=== PATIENT | male | born 1940 | race Asian ===

== ENCOUNTER 2017-10-23 12:09 | Inpatient (IN) | payer OTHER ==
[2017-10-23] MEDS: hydrALAzine 20 MG INJ IV (22:52)
[2017-10-23 23:11] LABS: ADD MAN DIFF? NO
[2017-10-23 23:14] LABS: BASOPHIL # 0.1 10^3/ul (0.0-0.1); BASOPHILS % 0.7 % (0.0-2.0); EOSINOPHILS # 0.5 10^3/ul (0.0-0.5); HEMATOCRIT 34.9 % (42.0-52.0); HEMOGLOBIN 12.3 g/dl (14.0-18.0); LYMPHOCYTES # 1.7 10^3/ul (0.8-2.9); LYMPHOCYTES % 17.2 % (15.0-51.0); MEAN CORPUSCULAR HEMOGLOBIN 31.4 pg (29.0-33.0); MEAN CORPUSCULAR HGB CONC 35.2 g/dl (32.0-37.0); MEAN PLATELET VOLUME 10.7 fl (7.4-10.4); MONOCYTE # 0.8 10^3/ul (0.3-0.9); MONOCYTES % 7.8 % (0.0-11.0); NEUTROPHIL # 6.6 10^3/ul (1.6-7.5); PLATELET COUNT 174 10^3/UL (140-415); RED BLOOD COUNT 3.92 10^6/ul (4.70-6.10); RED CELL DISTRIBUTION WIDTH 12.4 % (11.5-14.5)
[2017-10-23 23:14] LABS: WHITE BLOOD COUNT 9.6 10^3/ul (4.8-10.8)
[2017-10-23] MEDS ORDERED: ONDANSETRON 4 MG INJ (23:42)
[2017-10-23] MEDS ORDERED: morphine 4 MG/ML VIAL (23:42)
[2017-10-23] MEDS: morphine 4 MG/ML VIAL IV (23:57)
[2017-10-23] MEDS: ONDANSETRON 4 MG INJ IV (23:59)
[2017-10-24 00:16] LABS: B-TYPE NATRIURETIC PEPTIDE 1770 PG/ML (0-450); TROPONIN-I 0.027 ng/ml (0.00-0.12)
[2017-10-24 00:35] LABS: ALANINE AMINOTRANSFERASE 31 IU/L (13-69); ALBUMIN 3.8 g/dl (3.3-4.9); ALBUMIN/GLOBULIN RATIO 1.11; ALKALINE PHOSPHATASE 60 IU/L (42-121); ANION GAP 14 (8-16); ASPARTATE AMINO TRANSFERASE 23 IU/L (15-46); BLOOD UREA NITROGEN 26 mg/dl (7-20); CALCIUM 9.2 mg/dl (8.4-10.2); CARBON DIOXIDE 28 mmol/L (21-31); CHLORIDE 105 mmol/L (97-110); GLUCOSE 95 mg/dl (70-220); POTASSIUM 3.4 mmol/L (3.5-5.1); SODIUM 144 mmol/L (135-144); TOTAL PROTEIN 7.2 g/dl (6.1-8.1)
[2017-10-24] MEDS ORDERED: NACL 0.9% 3 ML SYG IV (05:00)
[2017-10-24] MEDS ORDERED: GLUCOSE GEL 15 GRAM TUBE BUCCAL (05:00)
[2017-10-24] MEDS ORDERED: ALBUTEROL/IPRATROPIUM (NEB) 3 ML AMP HHN (05:00)
[2017-10-24] MEDS ORDERED: GLUCOSE GEL 15 GRAM TUBE PO ×2 (05:00)
[2017-10-24] MEDS ORDERED: GLUCAGON 1 MG INJ IM (05:00)
[2017-10-24] MEDS ORDERED: DIPHENHYDRAMINE 25 MG CAP PO (05:00)
[2017-10-24] MEDS ORDERED: ACETAMINOPHEN 325 MG TAB PO (05:00)
[2017-10-24] MEDS ORDERED: DEXTROSE 50% 50 ML SYRINGE IV (05:00)
[2017-10-24] MEDS ORDERED: NITROGLYCERIN (SL) 0.4 MG TAB SL (05:00)
[2017-10-24] MEDS ORDERED: ONDANSETRON 4 MG INJ IV (05:00)
[2017-10-24] MEDS: NIFEdipine 10 MG CAP PO ×3 (05:59→22:19)
[2017-10-24] MEDS: traMADol 50 MG TAB PO ×3 (05:59→22:23)
[2017-10-24 06:54] LABS: ADD MAN DIFF? NO
[2017-10-24 06:56] LABS: BASOPHIL # 0.1 10^3/ul (0.0-0.1); BASOPHILS % 0.8 % (0.0-2.0); EOSINOPHILS # 0.4 10^3/ul (0.0-0.5); EOSINOPHILS % 4.6 % (0.0-7.0); HEMATOCRIT 34.5 % (42.0-52.0); HEMOGLOBIN 12.1 g/dl (14.0-18.0); LYMPHOCYTES # 1.6 10^3/ul (0.8-2.9); LYMPHOCYTES % 17.1 % (15.0-51.0); MEAN CORPUSCULAR HEMOGLOBIN 31.4 pg (29.0-33.0); MEAN CORPUSCULAR HGB CONC 35.1 g/dl (32.0-37.0); MEAN CORPUSCULAR VOLUME 89.6 fl (82.0-101.0); MEAN PLATELET VOLUME 10.5 fl (7.4-10.4); MONOCYTE # 0.8 10^3/ul (0.3-0.9); MONOCYTES % 8.2 % (0.0-11.0); NEUTROPHIL # 6.4 10^3/ul (1.6-7.5); PLATELET COUNT 161 10^3/UL (140-415); RED BLOOD COUNT 3.85 10^6/ul (4.70-6.10); RED CELL DISTRIBUTION WIDTH 12.4 % (11.5-14.5)
[2017-10-24 06:56] LABS: WHITE BLOOD COUNT 9.3 10^3/ul (4.8-10.8)
[2017-10-24 07:22] LABS: CREATINE KINASE 565 IU/L (23-200)
[2017-10-24] MEDS: INSULIN ASPART [NOVOLOG] 3 ML PEN SC ×4 (07:22→20:59)
[2017-10-24 07:30] LABS: ALANINE AMINOTRANSFERASE 31 IU/L (13-69); ALBUMIN 3.4 g/dl (3.3-4.9); ALBUMIN/GLOBULIN RATIO 1.21; ALKALINE PHOSPHATASE 52 IU/L (42-121); ANION GAP 15 (8-16); ASPARTATE AMINO TRANSFERASE 68 IU/L (15-46); BILIRUBIN,INDIRECT 0.3 mg/dl (0-1.1); BILIRUBIN,TOTAL 0.3 mg/dl (0.2-1.3); BLOOD UREA NITROGEN 25 mg/dl (7-20); CALCIUM 8.5 mg/dl (8.4-10.2); CARBON DIOXIDE 26 mmol/L (21-31); CHLORIDE 106 mmol/L (97-110); CHOL/HDL RATIO 3.3 RATIO; CHOLESTEROL 128 mg/dl (100-200); CREATININE 1.85 mg/dl (0.61-1.24); GLUCOSE 112 mg/dl (70-220); HDL CHOLESTEROL 38 mg/dl (31-75); LDL CHOLESTEROL,CALCULATED 75 mg/dl; POTASSIUM 3.6 mmol/L (3.5-5.1); SODIUM 143 mmol/L (135-144); TOTAL PROTEIN 6.2 g/dl (6.1-8.1); TRIGLYCERIDES 74 mg/dl (0-149)
[2017-10-24 07:34] LABS: CK INDEX 7.8
[2017-10-24] MEDS: DOCUSATE SODIUM 100 MG CAP PO ×2 (07:55→20:59)
[2017-10-24] MEDS: LOSARTAN 50 MG TAB PO (07:56)
[2017-10-24] MEDS: HYDROCHLOROTHIAZIDE 25 MG TAB PO (07:57)
[2017-10-24] MEDS: ENOXAPARIN 60 MG/0.6 ML SYG SC ×2 (08:19→20:50)
[2017-10-24] MEDS: ASPIRIN (EC) 81 MG TAB PO (08:20)
[2017-10-24] MEDS: ATORVASTATIN 40 MG TAB PO (08:20)
[2017-10-24] MEDS ORDERED: HEPARIN 5,000 UNIT/0.5 ML VIAL SC (09:00)
[2017-10-24 13:13] LABS: CREATINE KINASE 829 IU/L (23-200)
[2017-10-24 13:25] LABS: CK INDEX 7.8
[2017-10-24 15:19] LABS: THYROID STIMULATING HORMONE 0.917 MIU/L (0.465-4.680)
[2017-10-24] MEDS: DOXAZOSIN 4 MG TAB PO (20:59)
[2017-10-24] MEDS: DIAZEPAM 5 MG TAB PO (21:30)
[2017-10-24] MEDS: DIPHENHYDRAMINE 50 MG CAP PO (21:30)
[2017-10-24] MEDS: SOD CHLORIDE 0.45% 1,000 ML IV (22:18)
[2017-10-24] MEDS: INSULIN GLARGINE [LANtus] 3 ML PEN SC (22:21)
[2017-10-25] MEDS: ACCU-CHEK XX (02:55)
[2017-10-25] MEDS ORDERED: DIPHENHYDRAMINE 50 MG CAP PO (06:00)
[2017-10-25] MEDS ORDERED: DIAZEPAM 5 MG TAB PO (06:00)
[2017-10-25] MEDS: NIFEdipine 10 MG CAP PO ×3 (06:55→21:06)
[2017-10-25] MEDS: traMADol 50 MG TAB PO ×4 (06:56→08:42)
[2017-10-25 07:41] LABS: ADD MAN DIFF? NO
[2017-10-25 07:46] LABS: BASOPHIL # 0.1 10^3/ul (0.0-0.1); BASOPHILS % 0.9 % (0.0-2.0); EOSINOPHILS # 0.6 10^3/ul (0.0-0.5); EOSINOPHILS % 5.9 % (0.0-7.0); HEMATOCRIT 35.3 % (42.0-52.0); HEMOGLOBIN 12.1 g/dl (14.0-18.0); LYMPHOCYTES % 18.9 % (15.0-51.0); MEAN CORPUSCULAR HEMOGLOBIN 31.2 pg (29.0-33.0); MEAN CORPUSCULAR HGB CONC 34.3 g/dl (32.0-37.0); MONOCYTE # 0.9 10^3/ul (0.3-0.9); MONOCYTES % 8.4 % (0.0-11.0); NEUTROPHIL # 6.8 10^3/ul (1.6-7.5); NEUTROPHILS % 65.6 % (39.0-77.0); PLATELET COUNT 163 10^3/UL (140-415); RED BLOOD COUNT 3.88 10^6/ul (4.70-6.10); RED CELL DISTRIBUTION WIDTH 12.4 % (11.5-14.5)
[2017-10-25 07:46] LABS: WHITE BLOOD COUNT 10.4 10^3/ul (4.8-10.8)
[2017-10-25] MEDS: INSULIN ASPART [NOVOLOG] 3 ML PEN SC ×4 (08:00→21:00)
[2017-10-25 08:06] LABS: INR 1.04; PROTIME 13.7 Sec (11.9-14.9); PT RATIO 1.1
[2017-10-25 08:07] LABS: PARTIAL THROMBOPLASTIN TIME 36.5 Sec (25.0-35.0)
[2017-10-25 08:09] LABS: CREATINE KINASE 497 IU/L (23-200); TRIGLYCERIDES 106 mg/dl (0-149)
[2017-10-25 08:09] LABS: CHOLESTEROL 115 mg/dl (100-200)
[2017-10-25] MEDS ORDERED: NITROGLYCERIN (IC) 100 MCG/ML INJ (08:16)
[2017-10-25] MEDS ORDERED: VERAPAMIL 5 MG INJ (08:16)
[2017-10-25] MEDS ORDERED: IODIXANOL LOCM 100 ML BTL (08:16)
[2017-10-25] MEDS ORDERED: FENTAnyl 50 MCG/ML VIAL (08:16)
[2017-10-25] MEDS ORDERED: HEPARIN 1000 UNITS/ML 10 ML INJ ×2 (08:16)
[2017-10-25] MEDS ORDERED: LIDOCAINE 1% (MDV) 20 ML INJ (08:16)
[2017-10-25] MEDS ORDERED: MIDAZOLAM 1 MG/ML 2 ML INJ (08:16)
[2017-10-25 08:21] LABS: CK INDEX 3.5
[2017-10-25 08:27] LABS: ANION GAP 12 (8-16); BLOOD UREA NITROGEN 29 mg/dl (7-20); CALCIUM 8.7 mg/dl (8.4-10.2); CARBON DIOXIDE 29 mmol/L (21-31); CHLORIDE 103 mmol/L (97-110); CREATININE 1.91 mg/dl (0.61-1.24); GLUCOSE 69 mg/dl (70-220); PHOSPHORUS 3.5 mg/dl (2.5-4.9); POTASSIUM 3.4 mmol/L (3.5-5.1); SODIUM 141 mmol/L (135-144)
[2017-10-25] MEDS: ASPIRIN (EC) 81 MG TAB PO (08:40)
[2017-10-25] MEDS: DOCUSATE SODIUM 100 MG CAP PO ×2 (08:40→21:06)
[2017-10-25] MEDS: ISOSORBIDE DINITRATE 10 MG TAB PO ×3 (08:41→21:06)
[2017-10-25] MEDS: ATORVASTATIN 80 MG TAB PO (08:41)
[2017-10-25] MEDS: SOD CHLORIDE 0.45% 1,000 ML IV (10:45)
[2017-10-25] MEDS: SOD CHLORIDE 0.9% 1,000 ML IV ×2 (10:55→12:48)
[2017-10-25] MEDS ORDERED: ONDANSETRON 4 MG INJ IV (11:00)
[2017-10-25] MEDS ORDERED: AL HYDROX/MG HYDROX/SIMETH 30 ML CUP PO (11:00)
[2017-10-25] MEDS ORDERED: HEPARIN 1000 UNITS/ML 10 ML INJ IV (19:00)
[2017-10-25 20:04] LABS: ADD MAN DIFF? NO
[2017-10-25 20:08] LABS: WHITE BLOOD COUNT 7.5 10^3/ul (4.8-10.8)
[2017-10-25 20:08] LABS: BASOPHIL # 0.1 10^3/ul (0.0-0.1); BASOPHILS % 1.1 % (0.0-2.0); EOSINOPHILS # 0.3 10^3/ul (0.0-0.5); EOSINOPHILS % 4.6 % (0.0-7.0); HEMATOCRIT 35.8 % (42.0-52.0); HEMOGLOBIN 12.4 g/dl (14.0-18.0); LYMPHOCYTES # 1.5 10^3/ul (0.8-2.9); LYMPHOCYTES % 19.4 % (15.0-51.0); MEAN CORPUSCULAR HEMOGLOBIN 31.2 pg (29.0-33.0); MEAN CORPUSCULAR HGB CONC 34.6 g/dl (32.0-37.0); MEAN CORPUSCULAR VOLUME 90.2 fl (82.0-101.0); MEAN PLATELET VOLUME 10.9 fl (7.4-10.4); MONOCYTE # 0.8 10^3/ul (0.3-0.9); MONOCYTES % 10.3 % (0.0-11.0); NEUTROPHIL # 4.8 10^3/ul (1.6-7.5); NEUTROPHILS % 64.3 % (39.0-77.0); PLATELET COUNT 165 10^3/UL (140-415); RED BLOOD COUNT 3.97 10^6/ul (4.70-6.10); RED CELL DISTRIBUTION WIDTH 12.3 % (11.5-14.5)
[2017-10-25 20:25] LABS: INR 0.97
[2017-10-25 20:26] LABS: PARTIAL THROMBOPLASTIN TIME 30.4 Sec (25.0-35.0)
[2017-10-25] MEDS ORDERED: ENOXAPARIN 60 MG/0.6 ML SYG SC (21:00)
[2017-10-25] MEDS: DOXAZOSIN 4 MG TAB PO (21:07)
[2017-10-25] MEDS: ACETYLCYSTEINE 600 MG CAP PO (21:07)
[2017-10-25] MEDS: HEPARIN 1000 UNITS/ML 10 ML INJ IV (21:09)
[2017-10-25] MEDS: HEPARIN 25000 UNITS/250 ML 250 ML IV (21:12)
[2017-10-25] MEDS: INSULIN GLARGINE [LANtus] 3 ML PEN SC (22:28)
[2017-10-26] MEDS: SOD CHLORIDE 0.45% 1,000 ML IV ×3 (02:02→17:14)
[2017-10-26] MEDS: ACCU-CHEK XX (02:03)
[2017-10-26 03:59] LABS: ADD MAN DIFF? NO
[2017-10-26 04:11] LABS: WHITE BLOOD COUNT 10.5 10^3/ul (4.8-10.8)
[2017-10-26 04:11] LABS: BASOPHIL # 0.1 10^3/ul (0.0-0.1); BASOPHILS % 0.6 % (0.0-2.0); EOSINOPHILS # 0.5 10^3/ul (0.0-0.5); EOSINOPHILS % 4.9 % (0.0-7.0); HEMATOCRIT 33.3 % (42.0-52.0); HEMOGLOBIN 11.3 g/dl (14.0-18.0); LYMPHOCYTES # 1.7 10^3/ul (0.8-2.9); LYMPHOCYTES % 15.7 % (15.0-51.0); MEAN CORPUSCULAR HEMOGLOBIN 30.9 pg (29.0-33.0); MEAN CORPUSCULAR HGB CONC 33.9 g/dl (32.0-37.0); MEAN PLATELET VOLUME 10.8 fl (7.4-10.4); MONOCYTES % 9.3 % (0.0-11.0); NEUTROPHIL # 7.3 10^3/ul (1.6-7.5); NEUTROPHILS % 69.1 % (39.0-77.0); PLATELET COUNT 150 10^3/UL (140-415); RED BLOOD COUNT 3.66 10^6/ul (4.70-6.10); RED CELL DISTRIBUTION WIDTH 12.3 % (11.5-14.5)
[2017-10-26 04:12] LABS: PLATELET COUNT 152 10^3/UL (140-415)
[2017-10-26 04:30] LABS: INR 1.04; PROTIME 13.7 Sec (11.9-14.9); PT RATIO 1.1
[2017-10-26 04:31] LABS: PARTIAL THROMBOPLASTIN TIME 56.6 Sec (25.0-35.0)
[2017-10-26 04:37] LABS: ANION GAP 15 (8-16); BLOOD UREA NITROGEN 26 mg/dl (7-20); CALCIUM 8.1 mg/dl (8.4-10.2); CARBON DIOXIDE 25 mmol/L (21-31); CHLORIDE 105 mmol/L (97-110); CREATININE 1.97 mg/dl (0.61-1.24); GLUCOSE 116 mg/dl (70-220); POTASSIUM 3.6 mmol/L (3.5-5.1); SODIUM 141 mmol/L (135-144)
[2017-10-26] MEDS: HEPARIN 25000 UNITS/250 ML 250 ML IV ×3 (05:02→18:30)
[2017-10-26] MEDS: NIFEdipine 10 MG CAP PO ×3 (06:33→21:03)
[2017-10-26] MEDS: DOCUSATE SODIUM 100 MG CAP PO ×2 (08:22→21:03)
[2017-10-26] MEDS: ASPIRIN (EC) 81 MG TAB PO (08:22)
[2017-10-26] MEDS: ATORVASTATIN 80 MG TAB PO (08:23)
[2017-10-26] MEDS: ACETYLCYSTEINE 600 MG CAP PO ×2 (08:23→21:05)
[2017-10-26] MEDS: ISOSORBIDE DINITRATE 10 MG TAB PO ×3 (08:23→21:04)
[2017-10-26] MEDS: INSULIN ASPART [NOVOLOG] 3 ML PEN SC ×4 (08:32→21:10)
[2017-10-26] MEDS: ACETAMINOPHEN 325 MG TAB PO (12:11)
[2017-10-26 13:12] LABS: INR 1.04; PROTIME 13.7 Sec (11.9-14.9); PT RATIO 1.1
[2017-10-26 13:14] LABS: PARTIAL THROMBOPLASTIN TIME 64.1 Sec (25.0-35.0)
[2017-10-26] MEDS: traMADol 50 MG TAB PO ×2 (13:31→23:37)
[2017-10-26 17:38] LABS: CREATINE KINASE 170 IU/L (23-200)
[2017-10-26 17:48] LABS: PARTIAL THROMBOPLASTIN TIME 62.6 Sec (25.0-35.0)
[2017-10-26 17:51] LABS: INR 1.05; PROTIME 13.8 Sec (11.9-14.9); PT RATIO 1.1
[2017-10-26 17:56] LABS: CK-MB 1.63 ng/ml (0.0-2.4)
[2017-10-26 20:16] LABS: ADD UMIC YES; UR ASCORBIC ACID NEGATIVE (NEGATIVE); UR BILIRUBIN (Dip) NEGATIVE (NEGATIVE); UR BLOOD (Dip) NEGATIVE (NEGATIVE); UR CLARITY CLEAR (CLEAR); UR COLOR STRAW (YELLOW); UR GLUCOSE (Dip) NEGATIVE (NEGATIVE); UR KETONES (Dip) NEGATIVE (NEGATIVE); UR LEUKOCYTE ESTERASE (Dip) NEGATIVE Leu/ul (NEGATIVE); UR NITRITE (Dip) NEGATIVE (NEGATIVE); UR RBC 0 /HPF (0-5); UR SPECIFIC GRAVITY (Dip) 1.005 (1.003-1.030); UR TOTAL PROTEIN (Dip) 1+ mg/dl (NEGATIVE); UR UROBILINOGEN (Dip) NEGATIVE (NEGATIVE); UR WBC 0 /HPF (0-5)
[2017-10-26] MEDS: DOXAZOSIN 4 MG TAB PO (21:04)
[2017-10-26] MEDS: INSULIN GLARGINE [LANtus] 3 ML PEN SC (21:09)
[2017-10-26 21:26] LABS: SODIUM,URINE RANDOM < 13 mmol/L (30-90)
[2017-10-27 00:04] LABS: PLATELET COUNT 132 10^3/UL (140-415)
[2017-10-27 00:28] LABS: PROTIME 13.3 Sec (11.9-14.9)
[2017-10-27 00:30] LABS: THROMBIN TIME 49.7 SEC (13.8-19.1)
[2017-10-27] MEDS: HEPARIN 25000 UNITS/250 ML 250 ML IV ×3 (00:49→19:07)
[2017-10-27 01:44] LABS: PROTIME 13.3 Sec (11.9-14.9)
[2017-10-27 01:45] LABS: PARTIAL THROMBOPLASTIN TIME 51.2 Sec (25.0-35.0)
[2017-10-27] MEDS: ACCU-CHEK XX (02:00)
[2017-10-27] MEDS: SOD CHLORIDE 0.45% 1,000 ML IV ×3 (02:45→19:06)
[2017-10-27] MEDS: traMADol 50 MG TAB PO ×3 (05:15→22:18)
[2017-10-27] MEDS: NIFEdipine 10 MG CAP PO ×3 (05:16→22:18)
[2017-10-27 07:50] LABS: ADD MAN DIFF? NO
[2017-10-27 07:57] LABS: BASOPHIL # 0.1 10^3/ul (0.0-0.1); BASOPHILS % 0.7 % (0.0-2.0); EOSINOPHILS # 0.4 10^3/ul (0.0-0.5); EOSINOPHILS % 4.5 % (0.0-7.0); HEMATOCRIT 30.9 % (42.0-52.0); HEMOGLOBIN 10.9 g/dl (14.0-18.0); LYMPHOCYTES # 1.5 10^3/ul (0.8-2.9); LYMPHOCYTES % 17.4 % (15.0-51.0); MEAN CORPUSCULAR HEMOGLOBIN 31.1 pg (29.0-33.0); MEAN CORPUSCULAR HGB CONC 35.3 g/dl (32.0-37.0); MEAN CORPUSCULAR VOLUME 88.3 fl (82.0-101.0); MEAN PLATELET VOLUME 11.2 fl (7.4-10.4); MONOCYTES % 11.4 % (0.0-11.0); NEUTROPHIL # 5.5 10^3/ul (1.6-7.5); NEUTROPHILS % 65.6 % (39.0-77.0); PLATELET COUNT 143 10^3/UL (140-415)
[2017-10-27 07:57] LABS: WHITE BLOOD COUNT 8.4 10^3/ul (4.8-10.8)
[2017-10-27] MEDS: INSULIN ASPART [NOVOLOG] 3 ML PEN SC ×4 (08:00→21:00)
[2017-10-27 08:21] LABS: PLATELET COUNT 137 10^3/UL (140-415)
[2017-10-27 08:26] LABS: CREATINE KINASE 148 IU/L (23-200)
[2017-10-27 08:28] LABS: ANION GAP 15 (8-16); BLOOD UREA NITROGEN 27 mg/dl (7-20); CALCIUM 8.2 mg/dl (8.4-10.2); CARBON DIOXIDE 24 mmol/L (21-31); CHLORIDE 103 mmol/L (97-110); CREATININE 1.84 mg/dl (0.61-1.24); GLUCOSE 97 mg/dl (70-220); INR 1.01; POTASSIUM 3.3 mmol/L (3.5-5.1); PROTIME 13.4 Sec (11.9-14.9); SODIUM 139 mmol/L (135-144)
[2017-10-27 08:31] LABS: CK INDEX 0.9
[2017-10-27 08:32] LABS: CK-MB 1.29 ng/ml (0.0-2.4)
[2017-10-27] MEDS: DOCUSATE SODIUM 100 MG CAP PO ×2 (08:39→21:05)
[2017-10-27] MEDS: ASPIRIN (EC) 81 MG TAB PO (08:40)
[2017-10-27] MEDS: ATORVASTATIN 80 MG TAB PO (08:41)
[2017-10-27] MEDS: ACETYLCYSTEINE 600 MG CAP PO (08:41)
[2017-10-27] MEDS: ISOSORBIDE DINITRATE 10 MG TAB PO ×3 (08:41→21:15)
[2017-10-27] MEDS: ACETAMINOPHEN 325 MG TAB PO (08:42)
[2017-10-27 10:30] LABS: THROMBIN TIME > 100.0 SEC (13.8-19.1)
[2017-10-27 10:31] LABS: PARTIAL THROMBOPLASTIN TIME 75.1 Sec (25.0-35.0)
[2017-10-27 11:29] LABS: INR 1.01; PROTIME 13.4 Sec (11.9-14.9)
[2017-10-27 11:30] LABS: PARTIAL THROMBOPLASTIN TIME 75.1 Sec (25.0-35.0)
[2017-10-27] MEDS: POTASSIUM CHLORIDE (SR) 10 MEQ TAB PO (17:17)
[2017-10-27 18:32] LABS: PROTIME 13.3 Sec (11.9-14.9)
[2017-10-27 18:33] LABS: PARTIAL THROMBOPLASTIN TIME 55.6 Sec (25.0-35.0)
[2017-10-27] MEDS: DOXAZOSIN 4 MG TAB PO (21:15)
[2017-10-27] MEDS: INSULIN GLARGINE [LANtus] 3 ML PEN SC (21:25)
[2017-10-28 01:39] LABS: PARTIAL THROMBOPLASTIN TIME 73.5 Sec (25.0-35.0)
[2017-10-28] MEDS: ACCU-CHEK XX (02:00)
[2017-10-28] MEDS: morphine 2 MG INJ IV (02:45)
[2017-10-28] MEDS: HEPARIN 25000 UNITS/250 ML 250 ML IV ×2 (03:24→11:25)
[2017-10-28] MEDS: NIFEdipine 10 MG CAP PO ×3 (06:24→22:35)
[2017-10-28] MEDS: traMADol 50 MG TAB PO ×3 (06:25→22:35)
[2017-10-28 08:00] LABS: ADD MAN DIFF? NO
[2017-10-28] MEDS: INSULIN ASPART [NOVOLOG] 3 ML PEN SC ×4 (08:00→21:00)
[2017-10-28 08:07] LABS: BASOPHILS % 0.4 % (0.0-2.0); EOSINOPHILS % 0.2 % (0.0-7.0); HEMATOCRIT 29.4 % (42.0-52.0); HEMOGLOBIN 10.5 g/dl (14.0-18.0); LYMPHOCYTES # 1.1 10^3/ul (0.8-2.9); LYMPHOCYTES % 11.5 % (15.0-51.0); MEAN CORPUSCULAR HEMOGLOBIN 31.6 pg (29.0-33.0); MEAN CORPUSCULAR HGB CONC 35.7 g/dl (32.0-37.0); MEAN CORPUSCULAR VOLUME 88.6 fl (82.0-101.0); MEAN PLATELET VOLUME 11.5 fl (7.4-10.4); MONOCYTE # 0.9 10^3/ul (0.3-0.9); MONOCYTES % 9.6 % (0.0-11.0); NEUTROPHIL # 7.5 10^3/ul (1.6-7.5); NEUTROPHILS % 77.8 % (39.0-77.0); PLATELET COUNT 142 10^3/UL (140-415); RED BLOOD COUNT 3.32 10^6/ul (4.70-6.10); RED CELL DISTRIBUTION WIDTH 12.2 % (11.5-14.5)
[2017-10-28 08:07] LABS: WHITE BLOOD COUNT 9.7 10^3/ul (4.8-10.8)
[2017-10-28] MEDS: DOCUSATE SODIUM 100 MG CAP PO ×2 (08:28→21:24)
[2017-10-28] MEDS: ISOSORBIDE DINITRATE 10 MG TAB PO ×3 (08:30→21:25)
[2017-10-28] MEDS: ATORVASTATIN 80 MG TAB PO (08:30)
[2017-10-28] MEDS: ASPIRIN (EC) 81 MG TAB PO (08:30)
[2017-10-28] MEDS: ACETAMINOPHEN 325 MG TAB PO (08:34)
[2017-10-28] MEDS: SOD CHLORIDE 0.45% 1,000 ML IV (08:35)
[2017-10-28 09:11] LABS: ANION GAP 16 (8-16); BLOOD UREA NITROGEN 26 mg/dl (7-20); CALCIUM 8.1 mg/dl (8.4-10.2); CARBON DIOXIDE 21 mmol/L (21-31); CHLORIDE 102 mmol/L (97-110); CREATININE 1.61 mg/dl (0.61-1.24); GLUCOSE 64 mg/dl (70-220); POTASSIUM 3.5 mmol/L (3.5-5.1); SODIUM 135 mmol/L (135-144)
[2017-10-28 10:43] LABS: PARTIAL THROMBOPLASTIN TIME 80.6 Sec (25.0-35.0)
[2017-10-28] MEDS: ACETYLCYSTEINE 600 MG CAP PO ×2 (14:41→21:25)
[2017-10-28 20:07] LABS: INR 1.02; PROTIME 13.5 Sec (11.9-14.9); PT RATIO 1.1
[2017-10-28 20:08] LABS: PARTIAL THROMBOPLASTIN TIME 59.8 Sec (25.0-35.0)
[2017-10-28] MEDS: DOXAZOSIN 4 MG TAB PO (21:24)
[2017-10-28] MEDS: INSULIN GLARGINE [LANtus] 3 ML PEN SC (21:32)
[2017-10-29] MEDS: ACCU-CHEK XX (02:00)
[2017-10-29 03:34] LABS: ADD MAN DIFF? NO
[2017-10-29 04:03] LABS: ANION GAP 12 (8-16); BLOOD UREA NITROGEN 30 mg/dl (7-20); CALCIUM 8.1 mg/dl (8.4-10.2); CARBON DIOXIDE 23 mmol/L (21-31); CHLORIDE 104 mmol/L (97-110); CREATININE 1.92 mg/dl (0.61-1.24); GLUCOSE 58 mg/dl (70-220); POTASSIUM 3.3 mmol/L (3.5-5.1); SODIUM 136 mmol/L (135-144)
[2017-10-29 04:11] LABS: BASOPHIL # 0.1 10^3/ul (0.0-0.1); EOSINOPHILS # 0.5 10^3/ul (0.0-0.5); EOSINOPHILS % 6.1 % (0.0-7.0); NEUTROPHIL # 4.3 10^3/ul (1.6-7.5); POSITIVE DIFF @See below
[2017-10-29 04:16] LABS: BASOPHILS % 0.6 % (0.0-2.0); HEMATOCRIT 29.3 % (42.0-52.0); HEMOGLOBIN 10.2 g/dl (14.0-18.0); INR 1.05; LYMPHOCYTES # 2.1 10^3/ul (0.8-2.9); LYMPHOCYTES % 26.2 % (15.0-51.0); MEAN CORPUSCULAR HEMOGLOBIN 31.2 pg (29.0-33.0); MEAN CORPUSCULAR HGB CONC 34.8 g/dl (32.0-37.0); MEAN CORPUSCULAR VOLUME 89.6 fl (82.0-101.0); MONOCYTE # 1.1 10^3/ul (0.3-0.9); MONOCYTES % 13.3 % (0.0-11.0); NEUTROPHILS % 53.4 % (39.0-77.0); PLATELET COUNT 144 10^3/UL (140-415); PROTIME 13.8 Sec (11.9-14.9); PT RATIO 1.1; RED BLOOD COUNT 3.27 10^6/ul (4.70-6.10); RED CELL DISTRIBUTION WIDTH 12.2 % (11.5-14.5)
[2017-10-29 04:16] LABS: WHITE BLOOD COUNT 8.1 10^3/ul (4.8-10.8)
[2017-10-29 04:17] LABS: PARTIAL THROMBOPLASTIN TIME 68.9 Sec (25.0-35.0)
[2017-10-29 05:19] LABS: PHOSPHORUS 4.5 mg/dl (2.5-4.9)
[2017-10-29 05:19] LABS: MAGNESIUM 1.8 mg/dl (1.7-2.5)
[2017-10-29] MEDS: traMADol 50 MG TAB PO ×3 (05:58→23:03)
[2017-10-29] MEDS: NIFEdipine 10 MG CAP PO ×3 (05:58→23:03)
[2017-10-29] MEDS: POTASSIUM CHLORIDE (SR) 20 MEQ TAB PO (06:04)
[2017-10-29] MEDS: HEPARIN 25000 UNITS/250 ML 250 ML IV (06:08)
[2017-10-29] MEDS: INSULIN ASPART [NOVOLOG] 3 ML PEN SC ×4 (07:42→20:37)
[2017-10-29] MEDS: DOCUSATE SODIUM 100 MG CAP PO ×2 (08:45→20:38)
[2017-10-29] MEDS: ACETYLCYSTEINE 600 MG CAP PO ×2 (08:46→20:40)
[2017-10-29] MEDS: ASPIRIN (EC) 81 MG TAB PO (08:46)
[2017-10-29] MEDS: ATORVASTATIN 80 MG TAB PO (08:46)
[2017-10-29] MEDS: morphine 2 MG INJ IV (08:56)
[2017-10-29] MEDS: ISOSORBIDE DINITRATE 10 MG TAB PO ×3 (08:57→23:01)
[2017-10-29 10:43] LABS: INR 1.03; PROTIME 13.6 Sec (11.9-14.9); PT RATIO 1.1
[2017-10-29 10:44] LABS: PARTIAL THROMBOPLASTIN TIME 68.4 Sec (25.0-35.0)
[2017-10-29] MEDS: DOXAZOSIN 4 MG TAB PO (20:39)
[2017-10-29] MEDS: INSULIN GLARGINE [LANtus] 3 ML PEN SC (20:41)
[2017-10-29] MEDS: COLCHICINE 0.6 MG TAB PO (23:02)
[2017-10-30] MEDS: ALLOPURINOL 100 MG TAB PO ×3 (00:01→21:00)
[2017-10-30] MEDS: POTASSIUM CHLORIDE 10 MEQ in SOD CHLORIDE 0.45% 1,000 ML IV (00:02)
[2017-10-30] MEDS: ACCU-CHEK XX ×8 (02:00→23:30)
[2017-10-30] MEDS: traMADol 50 MG TAB PO ×3 (05:34→22:00)
[2017-10-30] MEDS: NIFEdipine 10 MG CAP PO ×3 (05:34→22:00)
[2017-10-30] MEDS ORDERED: GELATIN SIZE 100 SPONGE (06:48)
[2017-10-30] MEDS ORDERED: THROMBIN 5000 UNIT VIAL (06:48)
[2017-10-30] MEDS ORDERED: PHENYLephrine 20MG IN 250 ML 250 ML IV (07:00)
[2017-10-30] MEDS ORDERED: EPINEPHrine 4 MG in DEXTROSE 5% 246 ML IV (07:00)
[2017-10-30] MEDS ORDERED: DOPamine-D5W 1.6 MG/ML 250 ML (07:00)
[2017-10-30] MEDS ORDERED: INSULIN HUMAN REGULAR 100 UNIT in SOD CHLORIDE 0.9% 99 ML IV (07:00)
[2017-10-30] MEDS ORDERED: NITROGLYCERIN 50 MG/D5W 250 ML BTL (07:00)
[2017-10-30] MEDS: DEXTROSE 50% 50 ML SYRINGE IV (07:17)
[2017-10-30] MEDS ORDERED: MIDAZOLAM 5 ML ×2 (07:46→09:44)
[2017-10-30] MEDS ORDERED: HEPARIN 1000 UNITS/ML 10 ML INJ ×3 (07:49→09:26)
[2017-10-30] MEDS ORDERED: POTASSIUM CHLORIDE 40 MEQ INJ (07:50)
[2017-10-30] MEDS ORDERED: NA BICARBONATE 8.4% 50 ML SYG ×2 (07:50→12:32)
[2017-10-30] MEDS ORDERED: MAGNESIUM SULFATE (MG) 50% 10 ML INJ (07:51)
[2017-10-30] MEDS ORDERED: PHENYLephrine 10 MG INJ ×2 (07:52→12:37)
[2017-10-30] MEDS ORDERED: LIDOCAINE 100 MG SYRINGE (07:52)
[2017-10-30] MEDS ORDERED: ALBUMIN HUMAN 25% 200 ML (07:53)
[2017-10-30] MEDS ORDERED: AMINOCAPROIC ACID 5 GM INJ ×4 (07:53→12:35)
[2017-10-30] MEDS ORDERED: MANNITOL 20% 250 ML IV (07:55)
[2017-10-30] MEDS ORDERED: PHENYLephrine (100 MCG/ML) 5ML SYG ×3 (07:56→10:27)
[2017-10-30] MEDS: INSULIN ASPART [NOVOLOG] 3 ML PEN SC ×4 (08:00→21:00)
[2017-10-30] MEDS ORDERED: CEFAZOLIN 1 GM INJ ×2 (08:44→12:34)
[2017-10-30] MEDS: DOCUSATE SODIUM 100 MG CAP PO ×2 (09:00→21:00)
[2017-10-30] MEDS: COLCHICINE 0.6 MG TAB PO ×2 (09:00→21:00)
[2017-10-30] MEDS: ACETYLCYSTEINE 600 MG CAP PO ×2 (09:00→21:00)
[2017-10-30] MEDS: ISOSORBIDE DINITRATE 10 MG TAB PO ×3 (09:00→21:00)
[2017-10-30] MEDS: ATORVASTATIN 80 MG TAB PO (09:00)
[2017-10-30] MEDS: ASPIRIN (EC) 81 MG TAB PO (09:00)
[2017-10-30] MEDS: HEPARIN 1000 UNITS/ML 10 ML INJ (10:10)
[2017-10-30] MEDS: PAPAVERINE 60 MG INJ (10:11)
[2017-10-30] MEDS: VANCOMYCIN 1 GM INJ (10:12)
[2017-10-30] MEDS ORDERED: FUROSEMIDE 20 MG INJ (10:21)
[2017-10-30] MEDS ORDERED: FUROSEMIDE 10 ML (10:23)
[2017-10-30] MEDS ORDERED: HEPARIN 10,000 UNITS/ML 1 ML INJ (10:33)
[2017-10-30 10:39] LABS: IMMEDIATE SPIN CROSSMATCH 1
[2017-10-30] MEDS ORDERED: CA CHLORIDE 10% 10 ML SYRINGE (12:29)
[2017-10-30] MEDS ORDERED: PROTAMINE 250 MG INJ (12:35)
[2017-10-30] MEDS ORDERED: ETOMIDATE 20 MG INJ (12:42)
[2017-10-30] MEDS ORDERED: LIDOCAINE 2% (SDV) 5 ML INJ (12:42)
[2017-10-30] MEDS ORDERED: ROCURONIUM 50 MG INJ (12:43)
[2017-10-30] MEDS ORDERED: hydrALAzine 20 MG INJ ×3 (13:03→14:37)
[2017-10-30 13:05] LABS: IMMEDIATE SPIN CROSSMATCH 1 9
[2017-10-30 13:09] LABS: TYPE AND SCREEN 1
[2017-10-30] MEDS: morphine 2 MG INJ IV ×2 (14:54→21:01)
[2017-10-30] MEDS ORDERED: ONDANSETRON 4 MG INJ IV (15:00)
[2017-10-30] MEDS ORDERED: MIDAZOLAM 1 MG/ML 2 ML INJ IV (15:00)
[2017-10-30] MEDS ORDERED: DOPamine-D5W 1.6 MG/ML 250 ML IV (15:00)
[2017-10-30] MEDS ORDERED: NITROGLYCERIN 50 MG/D5W (PMX) 250 ML IV ×2 (15:00)
[2017-10-30] MEDS ORDERED: morphine (1 MG/ML) 10ML SYRINGE IV ×3 (15:00)
[2017-10-30] MEDS ORDERED: DIPHENHYDRAMINE 50 MG INJ IV (15:00)
[2017-10-30] MEDS ORDERED: LORAZEPAM 2 MG INJ IV (15:00)
[2017-10-30] MEDS ORDERED: OXYCODONE/ACETAMINOPHEN (5/325) TAB PO (15:00)
[2017-10-30] MEDS ORDERED: hydrALAzine 20 MG INJ IV (15:00)
[2017-10-30 15:10] LABS: WHITE BLOOD COUNT 8.4 10^3/ul (4.8-10.8)
[2017-10-30 15:10] LABS: ABNORMAL IP MESSAGE 1; HEMATOCRIT 30.6 % (42.0-52.0); HEMOGLOBIN 10.7 g/dl (14.0-18.0); MEAN CORPUSCULAR HEMOGLOBIN 30.7 pg (29.0-33.0); MEAN CORPUSCULAR VOLUME 87.7 fl (82.0-101.0); MEAN PLATELET VOLUME 10.6 fl (7.4-10.4); PLATELET COUNT 91 10^3/UL (140-415); POSITIVE DIFF @See below; RED BLOOD COUNT 3.49 10^6/ul (4.70-6.10); RED CELL DISTRIBUTION WIDTH 13.3 % (11.5-14.5)
[2017-10-30 15:14] LABS: ANION GAP 14 (8-16); BLOOD UREA NITROGEN 27 mg/dl (7-20); CALCIUM 8.1 mg/dl (8.4-10.2); CARBON DIOXIDE 22 mmol/L (21-31); CHLORIDE 104 mmol/L (97-110); CREATININE 1.58 mg/dl (0.61-1.24); GLUCOSE 140 mg/dl (70-220); POTASSIUM 3.7 mmol/L (3.5-5.1); SODIUM 136 mmol/L (135-144)
[2017-10-30 15:15] LABS: MAGNESIUM 2.4 mg/dl (1.7-2.5)
[2017-10-30 15:15] LABS: PHOSPHORUS 3.3 mg/dl (2.5-4.9)
[2017-10-30] MEDS: NITROPRUSSIDE 50 MG in DEXTROSE 5% 248 ML IV (15:17)
[2017-10-30 15:21] LABS: INR 1.22; PROTIME 15.6 Sec (11.9-14.9); PT RATIO 1.2
[2017-10-30 15:23] LABS: AADO2 Arterial 289.8 mmHg (7.0-24.0); Arterial Base Excess -1.9 mmol/L (-3.0-3); Arterial Blood Gas Oxygen Sat 96.9 mmHG (95.0-100.0); Arterial COHb 0.3 % (0.0-3.0); Arterial Fraction of Oxyhgb 96.2 % (93.0-99.0); Arterial HCO3 22.6 mmol/L (22.0-26.0); Arterial MetHb 0.4 % (0.0-1.5); Arterial Total Hemglobin 12.3 g/dl (12.0-18.0); Arterial pCO2 37.8 mmhg (35-45); MODE VENT - AC; Site A-Line
[2017-10-30 15:25] LABS: ADD MAN DIFF? YES
[2017-10-30 15:27] LABS: MODE VENT - AC; MetHgb Mixed Venous 0.4 %; Mixed Venous COHb 0.3 %; Mixed Venous Fraction OxyHgb 76.7 %; Mixed Venous Oxygen Sat 77.2 mmHG (65.0-75.0); Mixed Venous Total Hemglobin 12.3 g/dl; Sample Type BLMV; Site PUL ART LINE
[2017-10-30] MEDS: hydrALAzine 20 MG INJ IV (15:27)
[2017-10-30] MEDS: NITROGLYCERIN 50 MG/D5W (PMX) 250 ML IV ×3 (15:29→22:07)
[2017-10-30] MEDS: POTASSIUM CHLORIDE 50 ML IVPB ×4 (15:46→22:39)
[2017-10-30 16:04] LABS: URIC ACID 5.7 mg/dl (3.1-7.9)
[2017-10-30 16:35] LABS: ANISOCYTOSIS 1+ (0-0); BAND NEUTROPHILS #M 2.1 10^3/ul (0.0-0.6); BAND NEUTROPHILS % (M) 25 % (0-4); EOSINOPHILS % (M) 3 % (0-7); LYMPHOCYTES #M 0.7 10^3/ul (0.8-2.9); LYMPHOCYTES % (M) 9 % (15-51); MICROCYTOSIS 1+ (0-0); MONOCYTE #M 0.2 10^3/ul (0.3-0.9); MONOCYTES % (M) 3 % (0-11); PLATELET ESTIMATE DECREASED; POIKILOCYTOSIS 1+ (0-0); REACTIVE LYMPHOCYTES #M 0.1 10^3/ul (0.0-0.0); REACTIVE LYMPHOCYTES% (M) 2 % (0-0); SEGMENTED NEUTROPHILS (M) % 58 % (39-77); SMUDGE%M 1 % (0-0)
[2017-10-30] MEDS: POTASSIUM CHLORIDE 40 MEQ, CALCIUM CHLORIDE 10% 1 GM in DEXTROSE 5%-0.225% NACL 1,000 ML IV ×2 (16:53→21:16)
[2017-10-30] MEDS: INSULIN HUMAN REGULAR 100 UNIT in SOD CHLORIDE 0.9% 99 ML IV ×2 (17:19→20:47)
[2017-10-30] MEDS ORDERED: DEXTROSE 50% 50 ML SYRINGE IV ×2 (17:30)
[2017-10-30] MEDS: HYDROmorphONE 0.5 MG/0.5 ML SYG IV ×3 (18:26→20:42)
[2017-10-30] MEDS: INSULIN GLARGINE [LANtus] 3 ML PEN SC (20:00)
[2017-10-30 20:31] LABS: ADD MAN DIFF? NO
[2017-10-30 20:32] LABS: ABNORMAL IP MESSAGE 1; BASOPHILS % 0.3 % (0.0-2.0); EOSINOPHILS # 0.3 10^3/ul (0.0-0.5); HEMATOCRIT 30.9 % (42.0-52.0); HEMOGLOBIN 10.9 g/dl (14.0-18.0); LYMPHOCYTES # 0.5 10^3/ul (0.8-2.9); LYMPHOCYTES % 4.9 % (15.0-51.0); MEAN CORPUSCULAR HEMOGLOBIN 30.7 pg (29.0-33.0); MEAN CORPUSCULAR HGB CONC 35.3 g/dl (32.0-37.0); MEAN PLATELET VOLUME 10.1 fl (7.4-10.4); MONOCYTE # 0.7 10^3/ul (0.3-0.9); MONOCYTES % 7.7 % (0.0-11.0); NEUTROPHIL # 7.9 10^3/ul (1.6-7.5); NEUTROPHILS % 83.8 % (39.0-77.0); PLATELET COUNT 118 10^3/UL (140-415); POSITIVE DIFF @See below; RED BLOOD COUNT 3.55 10^6/ul (4.70-6.10); RED CELL DISTRIBUTION WIDTH 13.7 % (11.5-14.5)
[2017-10-30 20:32] LABS: WHITE BLOOD COUNT 9.4 10^3/ul (4.8-10.8)
[2017-10-30] MEDS: FAMOTIDINE 20 MG INJ IV (20:41)
[2017-10-30 20:49] LABS: ANION GAP 15 (8-16); BLOOD UREA NITROGEN 29 mg/dl (7-20); CALCIUM 7.8 mg/dl (8.4-10.2); CARBON DIOXIDE 23 mmol/L (21-31); CHLORIDE 104 mmol/L (97-110); CREATININE 1.88 mg/dl (0.61-1.24); GLUCOSE 134 mg/dl (70-220); MAGNESIUM 2.2 mg/dl (1.7-2.5); POTASSIUM 3.7 mmol/L (3.5-5.1); SODIUM 138 mmol/L (135-144)
[2017-10-30] MEDS: DOXAZOSIN 4 MG TAB PO (21:00)
[2017-10-30] MEDS: CEFAZOLIN 1 GM/50 ML (PMX) 50 ML IVPB (21:58)
[2017-10-31] MEDS: POTASSIUM CHLORIDE 50 ML IVPB ×2 (00:37→01:36)
[2017-10-31] MEDS: ACCU-CHEK XX ×19 (00:38→18:57)
[2017-10-31] MEDS: morphine 2 MG INJ IV ×6 (01:17→22:46)
[2017-10-31] MEDS: NITROGLYCERIN 50 MG/D5W (PMX) 250 ML IV ×4 (02:20→14:55)
[2017-10-31] MEDS: HYDROmorphONE 0.5 MG/0.5 ML SYG IV ×6 (02:43→20:08)
[2017-10-31 05:20] LABS: ADD MAN DIFF? NO
[2017-10-31] MEDS: ONDANSETRON 4 MG INJ IV ×2 (05:26→09:23)
[2017-10-31] MEDS: CEFAZOLIN 1 GM/50 ML (PMX) 50 ML IVPB ×2 (05:33→14:11)
[2017-10-31 05:44] LABS: WHITE BLOOD COUNT 8.5 10^3/ul (4.8-10.8)
[2017-10-31 05:44] LABS: ABNORMAL IP MESSAGE 1; BASOPHILS % 0.4 % (0.0-2.0); EOSINOPHILS # 0.1 10^3/ul (0.0-0.5); EOSINOPHILS % 1.4 % (0.0-7.0); HEMATOCRIT 29.4 % (42.0-52.0); HEMOGLOBIN 10.1 g/dl (14.0-18.0); LYMPHOCYTES # 0.4 10^3/ul (0.8-2.9); LYMPHOCYTES % 4.1 % (15.0-51.0); MEAN CORPUSCULAR HEMOGLOBIN 30.3 pg (29.0-33.0); MEAN CORPUSCULAR HGB CONC 34.4 g/dl (32.0-37.0); MEAN CORPUSCULAR VOLUME 88.3 fl (82.0-101.0); MEAN PLATELET VOLUME 11.3 fl (7.4-10.4); MONOCYTE # 0.9 10^3/ul (0.3-0.9); MONOCYTES % 10.3 % (0.0-11.0); NEUTROPHILS % 83.3 % (39.0-77.0); PLATELET COUNT 118 10^3/UL (140-415); POSITIVE DIFF @See below; RED BLOOD COUNT 3.33 10^6/ul (4.70-6.10); RED CELL DISTRIBUTION WIDTH 14.1 % (11.5-14.5)
[2017-10-31 05:58] LABS: ANION GAP 14 (8-16); BLOOD UREA NITROGEN 29 mg/dl (7-20); CARBON DIOXIDE 20 mmol/L (21-31); CHLORIDE 107 mmol/L (97-110); CREATININE 2.18 mg/dl (0.61-1.24); GLUCOSE 123 mg/dl (70-220); POTASSIUM 5.2 mmol/L (3.5-5.1); SODIUM 136 mmol/L (135-144)
[2017-10-31] MEDS: traMADol 50 MG TAB PO ×3 (06:00→22:14)
[2017-10-31] MEDS: NIFEdipine 10 MG CAP PO ×3 (06:00→22:14)
[2017-10-31 06:26] LABS: AADO2 Arterial 149.2 mmHg (7.0-24.0); Arterial Base Excess -7.6 mmol/L (-3.0-3); Arterial Blood Gas Oxygen Sat 95.5 mmHG (95.0-100.0); Arterial COHb 0.2 % (0.0-3.0); Arterial Fraction of Oxyhgb 94.9 % (93.0-99.0); Arterial HCO3 18.2 mmol/L (22.0-26.0); Arterial MetHb 0.4 % (0.0-1.5); Arterial Total Hemglobin 10.1 g/dl (12.0-18.0); Blood Gas PS 0; MODE VENT - CPAP; Site A-Line
[2017-10-31 07:30] LABS: PHOSPHORUS 2.9 mg/dl (2.5-4.9)
[2017-10-31] MEDS: INSULIN ASPART [NOVOLOG] 3 ML PEN SC ×4 (07:35→21:00)
[2017-10-31] MEDS: DOCUSATE SODIUM 100 MG CAP PO ×2 (09:00→20:59)
[2017-10-31 09:21] LABS: AADO2 Arterial 154.1 mmHg (7.0-24.0); Arterial Base Excess -6.3 mmol/L (-3.0-3); Arterial COHb 0.2 % (0.0-3.0); Arterial Fraction of Oxyhgb 95.4 % (93.0-99.0); Arterial HCO3 18.7 mmol/L (22.0-26.0); Arterial MetHb 0.4 % (0.0-1.5); Arterial Total Hemglobin 10.7 g/dl (12.0-18.0); Arterial pCO2 35.2 mmhg (35-45); Blood Gas PS 10; MODE VENT - CPAP; Site A-Line
[2017-10-31] MEDS ORDERED: ALBUTEROL/IPRATROPIUM (NEB) 3 ML AMP HHN (10:30)
[2017-10-31] MEDS: FAMOTIDINE 20 MG INJ IV (10:30)
[2017-10-31] MEDS: FUROSEMIDE 20 MG INJ IV (10:36)
[2017-10-31] MEDS: RACEPINEPHRINE 2.25%(NEB) 0.5 ML AMP HHN (10:38)
[2017-10-31] MEDS: ASPIRIN (EC) 81 MG TAB PO (11:41)
[2017-10-31] MEDS: ISOSORBIDE DINITRATE 10 MG TAB PO ×3 (11:42→21:00)
[2017-10-31] MEDS: ALLOPURINOL 100 MG TAB PO ×2 (11:42→20:59)
[2017-10-31] MEDS: ACETYLCYSTEINE 600 MG CAP PO ×2 (11:42→21:00)
[2017-10-31] MEDS: ATORVASTATIN 80 MG TAB PO (11:42)
[2017-10-31] MEDS: COLCHICINE 0.6 MG TAB PO ×2 (11:42→20:59)
[2017-10-31] MEDS: FUROSEMIDE 40 MG INJ IV (13:07)
[2017-10-31 13:14] LABS: AADO2 Arterial 122.3 mmHg (7.0-24.0); Arterial Blood Gas Oxygen Sat 92.7 mmHG (95.0-100.0); Arterial COHb 0.2 % (0.0-3.0); Arterial Fraction of Oxyhgb 92.1 % (93.0-99.0); Arterial HCO3 18.4 mmol/L (22.0-26.0); Arterial MetHb 0.5 % (0.0-1.5); Arterial Total Hemglobin 10.5 g/dl (12.0-18.0); Arterial pCO2 36.8 mmhg (35-45); MODE NASAL CANNULA; Site A-Line
[2017-10-31] MEDS ORDERED: ATROPINE 1 MG/10 ML SYRINGE (15:24)
[2017-10-31] MEDS: DOPamine-D5W 1.6 MG/ML 250 ML IV (15:41)
[2017-10-31] MEDS: BUMETANIDE 6 MG in DEXTROSE 5% 36 ML IV (16:00)
[2017-10-31] MEDS ORDERED: NORepinephrine 8MG/250 ML (PMX 250 ML IV (16:30)
[2017-10-31 17:35] LABS: ADD UMIC YES; UR ASCORBIC ACID NEGATIVE (NEGATIVE); UR BACTERIA FEW /HPF (NONE SEEN); UR BILIRUBIN (Dip) NEGATIVE (NEGATIVE); UR BLOOD (Dip) 1+ mg/dL (NEGATIVE); UR CLARITY SLIGHTLY CLOUDY (CLEAR); UR COLOR YELLOW (YELLOW); UR GLUCOSE (Dip) NEGATIVE (NEGATIVE); UR KETONES (Dip) NEGATIVE (NEGATIVE); UR LEUKOCYTE ESTERASE (Dip) 1+ Leu/ul (NEGATIVE); UR MUCUS FEW /HPF (NONE SEEN); UR NITRITE (Dip) NEGATIVE (NEGATIVE); UR RBC 5 /HPF (0-5); UR SPECIFIC GRAVITY (Dip) 1.014 (1.003-1.030); UR TOTAL PROTEIN (Dip) 2+ mg/dl (NEGATIVE); UR UROBILINOGEN (Dip) NEGATIVE (NEGATIVE); UR WBC 13 /HPF (0-5)
[2017-10-31] MEDS: hydrALAzine 20 MG INJ IV (17:42)
[2017-10-31 19:01] LABS: ANION GAP 16 (8-16); BLOOD UREA NITROGEN 32 mg/dl (7-20); CALCIUM 8.2 mg/dl (8.4-10.2); CARBON DIOXIDE 19 mmol/L (21-31); CHLORIDE 102 mmol/L (97-110); CREATININE 2.94 mg/dl (0.61-1.24); GLUCOSE 102 mg/dl (70-220); POTASSIUM 5.4 mmol/L (3.5-5.1); SODIUM 132 mmol/L (135-144)
[2017-10-31] MEDS: POTASSIUM CHLORIDE 40 MEQ, CALCIUM CHLORIDE 10% 1 GM in DEXTROSE 5%-0.225% NACL 1,000 ML IV (19:17)
[2017-10-31] MEDS: INSULIN GLARGINE [LANtus] 3 ML PEN SC (20:00)
[2017-10-31] MEDS: DOXAZOSIN 4 MG TAB PO (20:59)
[2017-10-31] MEDS ORDERED: DEXTROSE 10%/0.2% NACL 1,000 ML IV (21:00)
[2017-10-31 21:09] LABS: AADO2 Arterial 146.9 mmHg (7.0-24.0); Arterial Base Excess -7.8 mmol/L (-3.0-3); Arterial Blood Gas Oxygen Sat 97.5 mmHG (95.0-100.0); Arterial COHb 0.3 % (0.0-3.0); Arterial Fraction of Oxyhgb 96.9 % (93.0-99.0); Arterial HCO3 16.6 mmol/L (22.0-26.0); Arterial MetHb 0.3 % (0.0-1.5); Arterial Total Hemglobin 11.8 g/dl (12.0-18.0); Arterial pCO2 30.5 mmhg (35-45); Blood Gas IEPAP 15/5; Blood Gas PS 10; MODE MASK - BIPAP; Site A-Line
[2017-10-31] MEDS: DEXTROSE 5%-0.225% NACL 1,000 ML IV (21:19)
[2017-10-31] MEDS: NA POLYST SULFON 15 GM/60 ML BTL PO (22:15)
[2017-11-01] MEDS: INSULIN GLARGINE [LANtus] 3 ML PEN SC (00:17)
[2017-11-01] MEDS: INSULIN ASPART [NOVOLOG] 3 ML PEN SC ×8 (00:19→21:00)
[2017-11-01] MEDS: ZOLPIDEM 5 MG TAB PO (01:52)
[2017-11-01] MEDS: morphine 2 MG INJ IV ×3 (04:13→11:14)
[2017-11-01 05:12] LABS: ADD MAN DIFF? NO
[2017-11-01 05:21] LABS: BASOPHILS % 0.2 % (0.0-2.0); HEMOGLOBIN 10.5 g/dl (14.0-18.0); LYMPHOCYTES # 0.6 10^3/ul (0.8-2.9); LYMPHOCYTES % 5.8 % (15.0-51.0); MEAN CORPUSCULAR HEMOGLOBIN 30.5 pg (29.0-33.0); MEAN CORPUSCULAR HGB CONC 33.9 g/dl (32.0-37.0); MEAN CORPUSCULAR VOLUME 90.1 fl (82.0-101.0); MONOCYTE # 0.9 10^3/ul (0.3-0.9); MONOCYTES % 8.6 % (0.0-11.0); NEUTROPHIL # 9.2 10^3/ul (1.6-7.5); NEUTROPHILS % 84.9 % (39.0-77.0); PLATELET COUNT 117 10^3/UL (140-415); RED BLOOD COUNT 3.44 10^6/ul (4.70-6.10); RED CELL DISTRIBUTION WIDTH 14.7 % (11.5-14.5)
[2017-11-01 05:21] LABS: WHITE BLOOD COUNT 10.9 10^3/ul (4.8-10.8)
[2017-11-01 06:10] LABS: ALANINE AMINOTRANSFERASE 36 IU/L (13-69); ALBUMIN 3.6 g/dl (3.3-4.9); ALBUMIN/GLOBULIN RATIO 1.56; ALKALINE PHOSPHATASE 59 IU/L (42-121); ANION GAP 21 (8-16); ASPARTATE AMINO TRANSFERASE 48 IU/L (15-46); BILIRUBIN,INDIRECT 0.3 mg/dl (0-1.1); BILIRUBIN,TOTAL 0.3 mg/dl (0.2-1.3); BLOOD UREA NITROGEN 39 mg/dl (7-20); CALCIUM 8.1 mg/dl (8.4-10.2); CARBON DIOXIDE 14 mmol/L (21-31); CHLORIDE 102 mmol/L (97-110); CREATININE 3.57 mg/dl (0.61-1.24); GLUCOSE 239 mg/dl (70-220); LIPASE 23 U/L (23-300); POTASSIUM 5.8 mmol/L (3.5-5.1); SODIUM 131 mmol/L (135-144); TOTAL PROTEIN 5.9 g/dl (6.1-8.1)
[2017-11-01] MEDS: traMADol 50 MG TAB PO ×3 (06:10→21:09)
[2017-11-01] MEDS: NIFEdipine 10 MG CAP PO ×3 (06:11→21:09)
[2017-11-01 08:17] LABS: PHOSPHORUS 5.6 mg/dl (2.5-4.9)
[2017-11-01] MEDS: COLCHICINE 0.6 MG TAB PO (08:25)
[2017-11-01] MEDS: ASPIRIN (EC) 81 MG TAB PO (08:25)
[2017-11-01] MEDS: ISOSORBIDE DINITRATE 10 MG TAB PO ×3 (08:25→21:07)
[2017-11-01] MEDS: ATORVASTATIN 80 MG TAB PO (08:25)
[2017-11-01] MEDS: FAMOTIDINE 20 MG INJ IV (08:25)
[2017-11-01] MEDS: ALLOPURINOL 100 MG TAB PO ×2 (08:26→21:08)
[2017-11-01] MEDS: DOCUSATE SODIUM 100 MG CAP PO ×2 (08:26→21:07)
[2017-11-01] MEDS: ACETYLCYSTEINE 600 MG CAP PO ×2 (09:00→21:08)
[2017-11-01 10:19] LABS: Allen Test ACCEPTAB; Arterial Base Excess -9.3 mmol/L (-3.0-3); Arterial Blood Gas Oxygen Sat 90.4 mmHG (95.0-100.0); Arterial COHb 0.3 % (0.0-3.0); Arterial Fraction of Oxyhgb 89.9 % (93.0-99.0); Arterial HCO3 14.9 mmol/L (22.0-26.0); Arterial MetHb 0.2 % (0.0-1.5); Arterial Total Hemglobin 11.5 g/dl (12.0-18.0); Arterial pCO2 27.6 mmhg (35-45); MODE NASAL CANNULA; Site Right Radial
[2017-11-01] MEDS: SODIUM BICARBONATE (IV ADD) 75 MEQ in SOD CHLORIDE 0.45% 925 ML IV (11:37)
[2017-11-01] MEDS: BUMETANIDE 6 MG in DEXTROSE 5% 36 ML IV (11:40)
[2017-11-01] MEDS: NA BICARBONATE 8.4% 50 ML SYG IV (11:40)
[2017-11-01] MEDS: NA POLYST SULFON 15 GM/60 ML BTL PO ×2 (14:00→17:00)
[2017-11-01 17:53] LABS: ANION GAP 19 (8-16); BLOOD UREA NITROGEN 53 mg/dl (7-20); CARBON DIOXIDE 20 mmol/L (21-31); CHLORIDE 98 mmol/L (97-110); CREATININE 4.13 mg/dl (0.61-1.24); GLUCOSE 125 mg/dl (70-220); POTASSIUM 4.6 mmol/L (3.5-5.1); SODIUM 132 mmol/L (135-144)
[2017-11-01 19:11] LABS: AADO2 Arterial 242.3 mmHg (7.0-24.0); Allen Test ACCEPTAB; Arterial Base Excess -6.3 mmol/L (-3.0-3); Arterial COHb 0.2 % (0.0-3.0); Arterial Fraction of Oxyhgb 94.6 % (93.0-99.0); Arterial HCO3 17.4 mmol/L (22.0-26.0); Arterial MetHb 0.2 % (0.0-1.5); Arterial Total Hemglobin 10.8 g/dl (12.0-18.0); Arterial pCO2 28.6 mmhg (35-45); Blood Gas IEPAP 15/5; MODE MASK - BIPAP; Site Right Radial
[2017-11-01] MEDS: DOXAZOSIN 4 MG TAB PO (21:07)
[2017-11-01] MEDS: HYDROmorphONE 0.5 MG/0.5 ML SYG IV (21:41)
[2017-11-01] MEDS ORDERED: ALBUMIN HUMAN 25% 100 ML (22:30)
[2017-11-01] MEDS: ALBUMIN HUMAN 25% 100 ML IV (22:32)
[2017-11-02] MEDS: DEXTROSE 50% 50 ML SYRINGE IV (04:32)
[2017-11-02] MEDS: NIFEdipine 10 MG CAP PO ×3 (05:00→20:09)
[2017-11-02] MEDS: traMADol 50 MG TAB PO ×3 (05:01→20:10)
[2017-11-02 05:18] LABS: ADD MAN DIFF? NO
[2017-11-02 05:27] LABS: BASOPHILS % 0.4 % (0.0-2.0); EOSINOPHILS # 0.1 10^3/ul (0.0-0.5); EOSINOPHILS % 0.8 % (0.0-7.0); HEMATOCRIT 26.7 % (42.0-52.0); HEMOGLOBIN 9.2 g/dl (14.0-18.0); LYMPHOCYTES # 1.1 10^3/ul (0.8-2.9); LYMPHOCYTES % 12.7 % (15.0-51.0); MEAN CORPUSCULAR HEMOGLOBIN 30.9 pg (29.0-33.0); MEAN CORPUSCULAR HGB CONC 34.5 g/dl (32.0-37.0); MEAN CORPUSCULAR VOLUME 89.6 fl (82.0-101.0); MEAN PLATELET VOLUME 12.1 fl (7.4-10.4); MONOCYTE # 0.8 10^3/ul (0.3-0.9); MONOCYTES % 9.4 % (0.0-11.0); NEUTROPHIL # 6.4 10^3/ul (1.6-7.5); PLATELET COUNT 114 10^3/UL (140-415); RED BLOOD COUNT 2.98 10^6/ul (4.70-6.10); RED CELL DISTRIBUTION WIDTH 13.9 % (11.5-14.5)
[2017-11-02 05:27] LABS: WHITE BLOOD COUNT 8.4 10^3/ul (4.8-10.8)
[2017-11-02 05:53] LABS: PHOSPHORUS 4.2 mg/dl (2.5-4.9)
[2017-11-02 05:53] LABS: MAGNESIUM 1.9 mg/dl (1.7-2.5)
[2017-11-02 05:56] LABS: ALANINE AMINOTRANSFERASE 99 IU/L (13-69); ALBUMIN 3.5 g/dl (3.3-4.9); ALBUMIN/GLOBULIN RATIO 1.59; ALKALINE PHOSPHATASE 59 IU/L (42-121); ANION GAP 16 (8-16); ASPARTATE AMINO TRANSFERASE 200 IU/L (15-46); BILIRUBIN,INDIRECT 0.3 mg/dl (0-1.1); BILIRUBIN,TOTAL 0.3 mg/dl (0.2-1.3); BLOOD UREA NITROGEN 41 mg/dl (7-20); CALCIUM 7.6 mg/dl (8.4-10.2); CARBON DIOXIDE 26 mmol/L (21-31); CHLORIDE 97 mmol/L (97-110); CREATININE 3.41 mg/dl (0.61-1.24); POTASSIUM 3.3 mmol/L (3.5-5.1); SODIUM 136 mmol/L (135-144); TOTAL PROTEIN 5.7 g/dl (6.1-8.1)
[2017-11-02 06:11] LABS: GLUCOSE 50 mg/dl (70-220)
[2017-11-02] MEDS: INSULIN ASPART [NOVOLOG] 3 ML PEN SC ×7 (07:35→20:10)
[2017-11-02] MEDS: FAMOTIDINE 20 MG INJ IV (08:10)
[2017-11-02] MEDS: ASPIRIN (EC) 81 MG TAB PO (08:10)
[2017-11-02] MEDS: ATORVASTATIN 80 MG TAB PO (08:10)
[2017-11-02] MEDS: ALLOPURINOL 100 MG TAB PO ×2 (08:10→20:08)
[2017-11-02] MEDS: DOCUSATE SODIUM 100 MG CAP PO ×2 (08:10→20:09)
[2017-11-02] MEDS: ACETYLCYSTEINE 600 MG CAP PO (08:10)
[2017-11-02] MEDS: ISOSORBIDE DINITRATE 10 MG TAB PO ×3 (08:10→20:09)
[2017-11-02] MEDS: hydrALAzine 20 MG INJ IV (08:23)
[2017-11-02] MEDS: POTASSIUM CHLORIDE 50 ML IVPB ×2 (08:48→09:53)
[2017-11-02] MEDS: MAGNESIUM SULFATE 1 GM/D5W 100 ML IVPB ×2 (08:48→09:53)
[2017-11-02] MEDS: INSULIN GLARGINE [LANtus] 3 ML PEN SC (09:13)
[2017-11-02] MEDS: OXYCODONE/ACETAMINOPHEN (5/325) TAB PO (18:39)
[2017-11-02] MEDS: DOXAZOSIN 4 MG TAB PO (20:09)
[2017-11-03 04:51] LABS: ADD MAN DIFF? NO
[2017-11-03 04:53] LABS: WHITE BLOOD COUNT 8.6 10^3/ul (4.8-10.8)
[2017-11-03 04:53] LABS: BASOPHILS % 0.5 % (0.0-2.0); EOSINOPHILS # 0.2 10^3/ul (0.0-0.5); EOSINOPHILS % 2.2 % (0.0-7.0); HEMATOCRIT 28.2 % (42.0-52.0); HEMOGLOBIN 9.6 g/dl (14.0-18.0); LYMPHOCYTES # 1.6 10^3/ul (0.8-2.9); LYMPHOCYTES % 18.9 % (15.0-51.0); MEAN CORPUSCULAR HEMOGLOBIN 30.6 pg (29.0-33.0); MEAN CORPUSCULAR VOLUME 89.8 fl (82.0-101.0); MONOCYTES % 11.9 % (0.0-11.0); NEUTROPHIL # 5.6 10^3/ul (1.6-7.5); NEUTROPHILS % 65.8 % (39.0-77.0); PLATELET COUNT 128 10^3/UL (140-415); RED BLOOD COUNT 3.14 10^6/ul (4.70-6.10)
[2017-11-03 05:20] LABS: PHOSPHORUS 3.7 mg/dl (2.5-4.9)
[2017-11-03 05:20] LABS: MAGNESIUM 2.3 mg/dl (1.7-2.5)
[2017-11-03 05:23] LABS: ANION GAP 16 (8-16); BLOOD UREA NITROGEN 40 mg/dl (7-20); CALCIUM 7.2 mg/dl (8.4-10.2); CARBON DIOXIDE 27 mmol/L (21-31); CHLORIDE 97 mmol/L (97-110); CREATININE 3.26 mg/dl (0.61-1.24); GLUCOSE 63 mg/dl (70-220); POTASSIUM 3.5 mmol/L (3.5-5.1); SODIUM 136 mmol/L (135-144)
[2017-11-03] MEDS: traMADol 50 MG TAB PO ×3 (06:47→21:53)
[2017-11-03] MEDS: NIFEdipine 10 MG CAP PO ×3 (06:48→21:53)
[2017-11-03] MEDS: INSULIN ASPART [NOVOLOG] 3 ML PEN SC ×7 (07:35→20:18)
[2017-11-03] MEDS: ATORVASTATIN 80 MG TAB PO (08:30)
[2017-11-03] MEDS: ALLOPURINOL 100 MG TAB PO ×2 (08:31→20:17)
[2017-11-03] MEDS: ASPIRIN (EC) 81 MG TAB PO (08:31)
[2017-11-03] MEDS: ISOSORBIDE DINITRATE 10 MG TAB PO ×3 (08:32→20:17)
[2017-11-03] MEDS: DOCUSATE SODIUM 100 MG CAP PO ×2 (08:33→20:17)
[2017-11-03] MEDS: FAMOTIDINE 20 MG TAB PO (09:50)
[2017-11-03] MEDS ORDERED: BISACODYL (EC) 5 MG TAB PO (16:30)
[2017-11-03] MEDS: BUMETANIDE 2 MG in DEXTROSE 5% 17 ML IV (17:41)
[2017-11-03] MEDS ORDERED: BUMETANIDE 1 MG INJ IV (18:00)
[2017-11-03] MEDS: DOXAZOSIN 4 MG TAB PO (20:17)
[2017-11-03] MEDS: POLYETHYLENE GLYCOL 17 GM PACKET PO (20:18)
[2017-11-03] MEDS: METOPROLOL 5 MG INJ IV (20:53)
[2017-11-03] MEDS: ACETAMINOPHEN 325 MG TAB PO (21:52)
[2017-11-04] MEDS: HYDROmorphONE 0.5 MG/0.5 ML SYG IV (01:16)
[2017-11-04] MEDS: NIFEdipine 10 MG CAP PO ×3 (05:16→21:33)
[2017-11-04] MEDS: BUMETANIDE 2 MG in DEXTROSE 5% 17 ML IV ×2 (05:18→18:40)
[2017-11-04] MEDS: traMADol 50 MG TAB PO ×3 (05:24→23:15)
[2017-11-04 06:24] LABS: ADD MAN DIFF? NO
[2017-11-04 06:27] LABS: WHITE BLOOD COUNT 8.5 10^3/ul (4.8-10.8)
[2017-11-04 06:27] LABS: BASOPHIL # 0.1 10^3/ul (0.0-0.1); BASOPHILS % 0.7 % (0.0-2.0); EOSINOPHILS # 0.3 10^3/ul (0.0-0.5); EOSINOPHILS % 3.7 % (0.0-7.0); HEMATOCRIT 28.1 % (42.0-52.0); HEMOGLOBIN 9.8 g/dl (14.0-18.0); LYMPHOCYTES # 1.1 10^3/ul (0.8-2.9); LYMPHOCYTES % 13.4 % (15.0-51.0); MEAN CORPUSCULAR HGB CONC 34.9 g/dl (32.0-37.0); MEAN CORPUSCULAR VOLUME 88.9 fl (82.0-101.0); MEAN PLATELET VOLUME 11.1 fl (7.4-10.4); MONOCYTE # 1.1 10^3/ul (0.3-0.9); MONOCYTES % 12.7 % (0.0-11.0); NEUTROPHIL # 5.8 10^3/ul (1.6-7.5); NEUTROPHILS % 68.7 % (39.0-77.0); PLATELET COUNT 153 10^3/UL (140-415); RED BLOOD COUNT 3.16 10^6/ul (4.70-6.10); RED CELL DISTRIBUTION WIDTH 13.2 % (11.5-14.5)
[2017-11-04 07:05] LABS: ANION GAP 15 (8-16); BLOOD UREA NITROGEN 48 mg/dl (7-20); CALCIUM 7.2 mg/dl (8.4-10.2); CARBON DIOXIDE 27 mmol/L (21-31); CHLORIDE 95 mmol/L (97-110); CREATININE 2.85 mg/dl (0.61-1.24); GLUCOSE 126 mg/dl (70-220); POTASSIUM 3.9 mmol/L (3.5-5.1); SODIUM 133 mmol/L (135-144)
[2017-11-04 07:07] LABS: MAGNESIUM 2.1 mg/dl (1.7-2.5)
[2017-11-04 07:07] LABS: PHOSPHORUS 3.3 mg/dl (2.5-4.9)
[2017-11-04] MEDS: INSULIN ASPART [NOVOLOG] 3 ML PEN SC ×7 (07:35→21:00)
[2017-11-04] MEDS: INSULIN GLARGINE [LANtus] 3 ML PEN SC (08:01)
[2017-11-04] MEDS: ALLOPURINOL 100 MG TAB PO ×2 (09:24→21:34)
[2017-11-04] MEDS: ISOSORBIDE DINITRATE 10 MG TAB PO ×3 (09:24→21:34)
[2017-11-04] MEDS: DOCUSATE SODIUM 100 MG CAP PO ×2 (09:24→21:34)
[2017-11-04] MEDS: FAMOTIDINE 20 MG TAB PO (09:24)
[2017-11-04] MEDS: ATORVASTATIN 80 MG TAB PO (09:24)
[2017-11-04] MEDS: POLYETHYLENE GLYCOL 17 GM PACKET PO ×2 (09:25→21:43)
[2017-11-04] MEDS: ASPIRIN (EC) 81 MG TAB PO (09:25)
[2017-11-04] MEDS: DOXAZOSIN 4 MG TAB PO (21:43)
[2017-11-05] MEDS: NIFEdipine 10 MG CAP PO ×3 (06:24→21:36)
[2017-11-05] MEDS: BUMETANIDE 2 MG in DEXTROSE 5% 17 ML IV ×2 (06:24→17:38)
[2017-11-05] MEDS: traMADol 50 MG TAB PO ×3 (06:25→21:36)
[2017-11-05] MEDS: INSULIN ASPART [NOVOLOG] 3 ML PEN SC ×7 (07:55→21:44)
[2017-11-05] MEDS: DOCUSATE SODIUM 100 MG CAP PO ×2 (08:05→21:33)
[2017-11-05] MEDS: FAMOTIDINE 20 MG TAB PO (08:06)
[2017-11-05] MEDS: ALLOPURINOL 100 MG TAB PO ×2 (08:06→21:36)
[2017-11-05] MEDS: ISOSORBIDE DINITRATE 10 MG TAB PO ×3 (08:06→21:35)
[2017-11-05] MEDS: ASPIRIN (EC) 81 MG TAB PO (08:06)
[2017-11-05] MEDS: POLYETHYLENE GLYCOL 17 GM PACKET PO ×2 (08:07→21:38)
[2017-11-05] MEDS: ATORVASTATIN 80 MG TAB PO (08:08)
[2017-11-05 08:21] LABS: ADD MAN DIFF? NO
[2017-11-05] MEDS: INSULIN GLARGINE [LANtus] 3 ML PEN SC (08:24)
[2017-11-05 08:25] LABS: BASOPHIL # 0.1 10^3/ul (0.0-0.1); BASOPHILS % 0.5 % (0.0-2.0); EOSINOPHILS # 0.4 10^3/ul (0.0-0.5); EOSINOPHILS % 3.9 % (0.0-7.0); HEMATOCRIT 29.5 % (42.0-52.0); HEMOGLOBIN 10.2 g/dl (14.0-18.0); LYMPHOCYTES # 1.1 10^3/ul (0.8-2.9); LYMPHOCYTES % 11.8 % (15.0-51.0); MEAN CORPUSCULAR HEMOGLOBIN 30.4 pg (29.0-33.0); MEAN CORPUSCULAR HGB CONC 34.6 g/dl (32.0-37.0); MEAN CORPUSCULAR VOLUME 87.8 fl (82.0-101.0); MEAN PLATELET VOLUME 10.7 fl (7.4-10.4); MONOCYTES % 10.6 % (0.0-11.0); NEUTROPHILS % 72.4 % (39.0-77.0); PLATELET COUNT 192 10^3/UL (140-415); RED BLOOD COUNT 3.36 10^6/ul (4.70-6.10)
[2017-11-05 08:25] LABS: WHITE BLOOD COUNT 9.6 10^3/ul (4.8-10.8)
[2017-11-05 08:48] LABS: ANION GAP 14 (8-16); BLOOD UREA NITROGEN 47 mg/dl (7-20); CALCIUM 7.5 mg/dl (8.4-10.2); CARBON DIOXIDE 27 mmol/L (21-31); CHLORIDE 95 mmol/L (97-110); CREATININE 2.41 mg/dl (0.61-1.24); GLUCOSE 100 mg/dl (70-220); MAGNESIUM 1.9 mg/dl (1.7-2.5); POTASSIUM 3.1 mmol/L (3.5-5.1); SODIUM 133 mmol/L (135-144)
[2017-11-05] MEDS: OXYCODONE/ACETAMINOPHEN (5/325) TAB PO (17:11)
[2017-11-05] MEDS: POTASSIUM CHLORIDE (SR) 20 MEQ TAB PO (19:00)
[2017-11-05] MEDS: DOXAZOSIN 4 MG TAB PO (21:33)
[2017-11-06] MEDS: traMADol 50 MG TAB PO ×3 (05:15→22:31)
[2017-11-06] MEDS: NIFEdipine 10 MG CAP PO ×3 (05:15→22:30)
[2017-11-06] MEDS: BUMETANIDE 2 MG in DEXTROSE 5% 17 ML IV ×2 (06:16→17:45)
[2017-11-06] MEDS: POTASSIUM CHLORIDE (SR) 20 MEQ TAB PO ×3 (08:29→20:20)
[2017-11-06] MEDS: ATORVASTATIN 80 MG TAB PO (08:29)
[2017-11-06] MEDS: DOCUSATE SODIUM 100 MG CAP PO ×2 (08:29→20:17)
[2017-11-06] MEDS: ALLOPURINOL 100 MG TAB PO ×2 (08:30→20:18)
[2017-11-06] MEDS: ISOSORBIDE DINITRATE 10 MG TAB PO (08:30)
[2017-11-06] MEDS: FAMOTIDINE 20 MG TAB PO (08:30)
[2017-11-06] MEDS: ASPIRIN (EC) 81 MG TAB PO (08:31)
[2017-11-06] MEDS: POLYETHYLENE GLYCOL 17 GM PACKET PO ×2 (08:31→20:18)
[2017-11-06 08:49] LABS: ALANINE AMINOTRANSFERASE 54 IU/L (13-69); ALBUMIN 2.9 g/dl (3.3-4.9); ALBUMIN/GLOBULIN RATIO 1.11; ALKALINE PHOSPHATASE 71 IU/L (42-121); ANION GAP 13 (8-16); ASPARTATE AMINO TRANSFERASE 46 IU/L (15-46); BILIRUBIN,INDIRECT 0.4 mg/dl (0-1.1); BILIRUBIN,TOTAL 0.4 mg/dl (0.2-1.3); BLOOD UREA NITROGEN 44 mg/dl (7-20); CALCIUM 7.7 mg/dl (8.4-10.2); CARBON DIOXIDE 29 mmol/L (21-31); CHLORIDE 93 mmol/L (97-110); CREATININE 2.05 mg/dl (0.61-1.24); GLUCOSE 145 mg/dl (70-220); SODIUM 132 mmol/L (135-144); TOTAL PROTEIN 5.5 g/dl (6.1-8.1)
[2017-11-06] MEDS: INSULIN ASPART [NOVOLOG] 3 ML PEN SC ×7 (08:52→20:18)
[2017-11-06] MEDS: INSULIN GLARGINE [LANtus] 3 ML PEN SC (08:53)
[2017-11-06 09:34] LABS: POTASSIUM 2.9 mmol/L (3.5-5.1)
[2017-11-06] MEDS: ACETAMINOPHEN 325 MG TAB PO (10:42)
[2017-11-06] MEDS: DOXAZOSIN 4 MG TAB PO (20:17)
[2017-11-07] MEDS: NIFEdipine 10 MG CAP PO ×3 (05:20→21:59)
[2017-11-07] MEDS: traMADol 50 MG TAB PO ×3 (05:20→22:00)
[2017-11-07] MEDS: BUMETANIDE 2 MG in DEXTROSE 5% 17 ML IV ×2 (06:15→17:26)
[2017-11-07] MEDS: ASPIRIN (EC) 81 MG TAB PO (08:32)
[2017-11-07] MEDS: ALLOPURINOL 100 MG TAB PO ×2 (08:32→21:58)
[2017-11-07] MEDS: FAMOTIDINE 20 MG TAB PO (08:32)
[2017-11-07] MEDS: DOCUSATE SODIUM 100 MG CAP PO ×2 (08:32→21:00)
[2017-11-07] MEDS: ATORVASTATIN 80 MG TAB PO (08:33)
[2017-11-07] MEDS: POTASSIUM CHLORIDE (SR) 20 MEQ TAB PO ×2 (08:33→22:00)
[2017-11-07] MEDS: POLYETHYLENE GLYCOL 17 GM PACKET PO ×2 (08:33→20:17)
[2017-11-07] MEDS: INSULIN ASPART [NOVOLOG] 3 ML PEN SC ×7 (08:38→22:12)
[2017-11-07] MEDS: INSULIN GLARGINE [LANtus] 3 ML PEN SC (08:39)
[2017-11-07 08:47] LABS: ALANINE AMINOTRANSFERASE 49 IU/L (13-69); ALBUMIN 2.8 g/dl (3.3-4.9); ALBUMIN/GLOBULIN RATIO 1.21; ALKALINE PHOSPHATASE 61 IU/L (42-121); ANION GAP 14 (8-16); ASPARTATE AMINO TRANSFERASE 35 IU/L (15-46); BILIRUBIN,INDIRECT 0.5 mg/dl (0-1.1); BILIRUBIN,TOTAL 0.5 mg/dl (0.2-1.3); BLOOD UREA NITROGEN 39 mg/dl (7-20); CALCIUM 7.6 mg/dl (8.4-10.2); CARBON DIOXIDE 28 mmol/L (21-31); CHLORIDE 95 mmol/L (97-110); CREATININE 1.81 mg/dl (0.61-1.24); GLUCOSE 144 mg/dl (70-220); POTASSIUM 3.9 mmol/L (3.5-5.1); SODIUM 133 mmol/L (135-144); TOTAL PROTEIN 5.1 g/dl (6.1-8.1)
[2017-11-07] MEDS: DOXAZOSIN 4 MG TAB PO (21:59)
[2017-11-08] MEDS: BUMETANIDE 2 MG in DEXTROSE 5% 17 ML IV ×2 (06:48→17:26)
[2017-11-08] MEDS: traMADol 50 MG TAB PO ×3 (06:49→21:31)
[2017-11-08] MEDS: NIFEdipine 10 MG CAP PO ×3 (06:49→21:31)
[2017-11-08] MEDS: INSULIN ASPART [NOVOLOG] 3 ML PEN SC ×7 (08:10→21:00)
[2017-11-08] MEDS: INSULIN GLARGINE [LANtus] 3 ML PEN SC (08:10)
[2017-11-08] MEDS: POLYETHYLENE GLYCOL 17 GM PACKET PO ×2 (08:31→21:00)
[2017-11-08] MEDS: ALLOPURINOL 100 MG TAB PO ×2 (08:32→21:31)
[2017-11-08] MEDS: FAMOTIDINE 20 MG TAB PO (08:32)
[2017-11-08] MEDS: ATORVASTATIN 80 MG TAB PO (08:32)
[2017-11-08] MEDS: POTASSIUM CHLORIDE (SR) 20 MEQ TAB PO ×2 (08:32→21:32)
[2017-11-08] MEDS: DOCUSATE SODIUM 100 MG CAP PO ×2 (08:32→21:31)
[2017-11-08] MEDS: ASPIRIN (EC) 81 MG TAB PO (08:32)
[2017-11-08 09:14] LABS: ALANINE AMINOTRANSFERASE 45 IU/L (13-69); ALBUMIN 3.1 g/dl (3.3-4.9); ALKALINE PHOSPHATASE 60 IU/L (42-121); ANION GAP 12 (8-16); ASPARTATE AMINO TRANSFERASE 30 IU/L (15-46); BILIRUBIN,INDIRECT 0.4 mg/dl (0-1.1); BILIRUBIN,TOTAL 0.4 mg/dl (0.2-1.3); BLOOD UREA NITROGEN 37 mg/dl (7-20); CALCIUM 8.2 mg/dl (8.4-10.2); CARBON DIOXIDE 32 mmol/L (21-31); CHLORIDE 93 mmol/L (97-110); CREATININE 1.88 mg/dl (0.61-1.24); GLUCOSE 153 mg/dl (70-220); POTASSIUM 3.8 mmol/L (3.5-5.1); SODIUM 133 mmol/L (135-144); TOTAL PROTEIN 5.9 g/dl (6.1-8.1)
[2017-11-08] MEDS: DOXAZOSIN 4 MG TAB PO (21:31)
[2017-11-09] MEDS: morphine 2 MG INJ IV (01:06)
[2017-11-09] MEDS: HYDROmorphONE 0.5 MG/0.5 ML SYG IV (03:21)
[2017-11-09] MEDS: NIFEdipine 10 MG CAP PO ×2 (06:17→14:24)
[2017-11-09] MEDS: traMADol 50 MG TAB PO ×2 (06:18→14:24)
[2017-11-09] MEDS: BUMETANIDE 2 MG in DEXTROSE 5% 17 ML IV ×2 (06:22→17:52)
[2017-11-09 07:10] LABS: ALANINE AMINOTRANSFERASE 45 IU/L (13-69); ALBUMIN 2.9 g/dl (3.3-4.9); ALBUMIN/GLOBULIN RATIO 1.16; ALKALINE PHOSPHATASE 61 IU/L (42-121); ANION GAP 13 (8-16); ASPARTATE AMINO TRANSFERASE 31 IU/L (15-46); BILIRUBIN,INDIRECT 0.6 mg/dl (0-1.1); BILIRUBIN,TOTAL 0.6 mg/dl (0.2-1.3); BLOOD UREA NITROGEN 35 mg/dl (7-20); CALCIUM 7.8 mg/dl (8.4-10.2); CARBON DIOXIDE 29 mmol/L (21-31); CHLORIDE 94 mmol/L (97-110); CREATININE 1.86 mg/dl (0.61-1.24); GLUCOSE 98 mg/dl (70-220); POTASSIUM 3.9 mmol/L (3.5-5.1); SODIUM 132 mmol/L (135-144); TOTAL PROTEIN 5.4 g/dl (6.1-8.1)
[2017-11-09] MEDS: INSULIN ASPART [NOVOLOG] 3 ML PEN SC ×6 (07:55→17:37)
[2017-11-09] MEDS: ATORVASTATIN 80 MG TAB PO (08:17)
[2017-11-09] MEDS: POTASSIUM CHLORIDE (SR) 20 MEQ TAB PO (08:17)
[2017-11-09] MEDS: ALLOPURINOL 100 MG TAB PO (08:17)
[2017-11-09] MEDS: ASPIRIN (EC) 81 MG TAB PO (08:17)
[2017-11-09] MEDS: FAMOTIDINE 20 MG TAB PO (08:17)
[2017-11-09] MEDS: DOCUSATE SODIUM 100 MG CAP PO (08:18)
[2017-11-09] MEDS: INSULIN GLARGINE [LANtus] 3 ML PEN SC (08:30)
[2017-11-09] MEDS: POLYETHYLENE GLYCOL 17 GM PACKET PO (09:00)
[2017-11-09 12:11] LABS: ADD MAN DIFF? NO
[2017-11-09 12:30] LABS: WHITE BLOOD COUNT 9.8 10^3/ul (4.8-10.8)
[2017-11-09 12:30] LABS: BASOPHIL # 0.1 10^3/ul (0.0-0.1); BASOPHILS % 0.7 % (0.0-2.0); EOSINOPHILS # 0.4 10^3/ul (0.0-0.5); HEMATOCRIT 29.8 % (42.0-52.0); LYMPHOCYTES # 1.6 10^3/ul (0.8-2.9); LYMPHOCYTES % 16.7 % (15.0-51.0); MEAN CORPUSCULAR HEMOGLOBIN 30.4 pg (29.0-33.0); MEAN CORPUSCULAR HGB CONC 33.6 g/dl (32.0-37.0); MEAN CORPUSCULAR VOLUME 90.6 fl (82.0-101.0); MEAN PLATELET VOLUME 10.3 fl (7.4-10.4); MONOCYTES % 9.8 % (0.0-11.0); NEUTROPHIL # 6.7 10^3/ul (1.6-7.5); NEUTROPHILS % 68.2 % (39.0-77.0); PLATELET COUNT 268 10^3/UL (140-415); RED BLOOD COUNT 3.29 10^6/ul (4.70-6.10); RED CELL DISTRIBUTION WIDTH 13.2 % (11.5-14.5)
[2017-11-09] MEDS: COLCHICINE 0.6 MG TAB PO (16:50)
== END 2017-11-09 19:33 | disposition home health service (06) | DRG 233 ==
LOC: ICU 10-30 14:08 → TEL 11-04 20:39 → E/R 12:09 → MS4 10-24 02:36
PROC: 4A023N7 Measurement of Cardiac Sampling and Pressure, Left Heart, Percutaneous Approach (ICD-10-PCS; 2017-10-25 09:00)
PROC: 0210099 Bypass Coronary Artery, One Artery from Left Internal Mammary with Autologous Venous Tissue, Open Approach (ICD-10-PCS; principal; 2017-10-25 09:28)
PROC: 06BQ4ZZ Excision of Left Saphenous Vein, Percutaneous Endoscopic Approach (ICD-10-PCS; 2017-10-25 09:28)
PROC: 021209W Bypass Coronary Artery, Three Arteries from Aorta with Autologous Venous Tissue, Open Approach (ICD-10-PCS; 2017-10-25 09:28)
PROC: 5A1221Z Performance of Cardiac Output, Continuous (ICD-10-PCS; 2017-10-25 09:28)
PROC: 02HQ32Z Insertion of Monitoring Device into Right Pulmonary Artery, Percutaneous Approach (ICD-10-PCS; 2017-10-25 09:28)
PROC: 4A133B3 Monitoring of Arterial Pressure, Pulmonary, Percutaneous Approach (ICD-10-PCS; 2017-10-25 09:28)
PROC: 4A1239Z Monitoring of Cardiac Output, Percutaneous Approach (ICD-10-PCS; 2017-10-25 09:28)
PROC: 5A1D70Z Performance of Urinary Filtration, Intermittent, Less than 6 Hours Per Day (ICD-10-PCS; 2017-10-25 09:28)
PROC: 06HM33Z Insertion of Infusion Device into Right Femoral Vein, Percutaneous Approach (ICD-10-PCS; 2017-10-25 09:28)
PROC: 30233R1 Transfusion of Nonautologous Platelets into Peripheral Vein, Percutaneous Approach (ICD-10-PCS; 2017-10-25 09:28)
PROC: 30233N1 Transfusion of Nonautologous Red Blood Cells into Peripheral Vein, Percutaneous Approach (ICD-10-PCS; 2017-10-25 09:28)
DX: I16.0 Hypertensive urgency (principal); I21.4 Non-ST elevation (NSTEMI) myocardial infarction; J96.01 Acute respiratory failure with hypoxia; N17.0 Acute kidney failure with tubular necrosis; E87.2 Acidosis; D69.6 Thrombocytopenia, unspecified; E11.22 Type 2 diabetes mellitus with diabetic chronic kidney disease; N18.3 Chronic kidney disease, stage 3 (moderate); J81.1 Chronic pulmonary edema; I12.9 Hypertensive chronic kidney disease with stage 1 through stage 4 chronic kidney disease, or unspecified chronic kidney disease; I25.10 Atherosclerotic heart disease of native coronary artery without angina pectoris; Z87.891 Personal history of nicotine dependence; E87.6 Hypokalemia; N40.0 Benign prostatic hyperplasia without lower urinary tract symptoms; D64.9 Anemia, unspecified; M10.9 Gout, unspecified; R00.1 Bradycardia, unspecified
CPT/HCPCS: 36415; 36430; 36592; 36600; 71045; 76775; 80048; 80053; 80061; 81001; 82465; 82550; 82553; 82803; 82962; 83036; 83690; 83735; 83880; 84100; 84155; 84300; 84443; 84478; 84484; 84560; 85025; 85049; 85610; 85670; 85730; 86644; 86850; 86900; 86901; 86920; 89190; 90935; 93005; 93306; 93312; 93325; 93458; 93880; 93971; 94002; 94003; 94640; 94660; 94770; 96372; 96374; 96375; 97110; 97116; 97162; 97530; 99291-25; J1940